=== PATIENT | male | born 1965 | race Hispanic/Latino ===

== ENCOUNTER 2017-09-05 09:25 | Emergency (ER) | payer MEDICARE, MEDICAID ==
[~2017-09-05] VITALS: Ht 162.6 cm; Wt 80.0 kg
[~2017-09-05 09:25] MED LIST: ALL DAY10 MG PO; ALLEGRA ALLERGY60 MG PO; AMOXICILLIN875 MG PO; BUSPIRONE10 MG PO; COLACE100 MG PO; FISH OIL1000 MG PO; FLONASE NASAL50 MCG; LISINOPRIL10 MG PO; LISINOPRIL20 M1 PO; LOPID600 MG PO; LOVASTATIN20 M1 PO; LOVASTATIN20 MG PO; LOVASTATIN40 M1 PO; MELATONIN3 MG PO; MIRTAZAPINE45 M1 PO; MIRTAZAPINE45 M2 PO; MUCINEX600 MG PO; NAPROSYN500 MG PO; NO HOME MEDS; NORCO1 TA1 PO; PEPCID20 MG PO; PREVACID30 M3 PO; SERTRALINE50 MG PO; ULTRAM50 M1 PO; ULTRAM50 MG OR
[2017-09-05] MEDS ORDERED: ULTRAM50 M1 PO (11:46)
[2017-09-05] MEDS ORDERED: FLEXERIL PO (11:46)
[2017-09-05 12:19] VITALS: BP 140/81
== END 2017-09-05 12:19 | disposition home or self-care (01) ==
LOC: ED 09:25
DX: M47.816 Spondylosis without myelopathy or radiculopathy, lumbar region (principal); G89.29 Other chronic pain; X50.0XXA Overexertion from strenuous movement or load, initial encounter; Y92.009 Unspecified place in unspecified non-institutional (private) residence as the place of occurrence of the external cause